=== PATIENT | male | born 1995 | race Caucasian/White ===

== ENCOUNTER 2021-09-10 22:57 | Emergency (ER) | payer SELFPAY ==
[~2021-09-10] VITALS: Ht 182.9 cm; Wt 95.2 kg
[2021-09-10] MEDS ORDERED: Amoxicillin875 MG PO (23:23)
== END 2021-09-10 23:43 | disposition home or self-care (01) ==
LOC: ER 22:57
DX: H66.92 Otitis media, unspecified, left ear (principal)
CPT/HCPCS: 96374; 99282-25; A9270; J1885